=== PATIENT | female | born 1990 | race Two or more races ===

== ENCOUNTER 2018-12-17 17:51 | Emergency (ER) | payer OTHER ==
[~2018-12-17] VITALS: Ht 160 cm; Wt 86.2 kg
[~2018-12-17 17:51] MED LIST: OSEL75CA PO
== END 2018-12-17 22:18 | disposition home or self-care (01) ==
LOC: ER 17:51
DX: N80.9 Endometriosis, unspecified (principal); R10.2 Pelvic and perineal pain

== ENCOUNTER 2019-07-17 08:30 | Day surgery (SDC) | payer OTHER | END 2019-07-17 15:00 | disposition home or self-care (01) | LOC: AMB-ENDOS 08:30 | DX: K52.89 Other specified noninfective gastroenteritis and colitis (principal); K64.1 Second degree hemorrhoids ==

== ENCOUNTER 2019-12-09 05:23 | Day surgery (SDC) | payer OTHER | END 2019-12-09 11:50 | disposition home or self-care (01) | LOC: CIR.AMB 05:23 | DX: N84.0 Polyp of corpus uteri (principal) ==

== ENCOUNTER 2021-06-08 13:09 | Outpatient (CLI) | payer OTHER | END 2021-06-08 13:21 | disposition home or self-care (01) | LOC: SONOGRAMA 13:09 → MAMO-SONO 13:45 | PROVIDERS: ATTEND Obstetrics & Gynecology | DX: N83.291 Other ovarian cyst, right side (principal) ==

== ENCOUNTER 2022-02-27 11:24 | Outpatient (CLI) | payer OTHER | END 2022-02-27 13:15 | disposition home or self-care (01) | LOC: PRENATAL 11:24 | PROVIDERS: ATTEND Obstetrics & Gynecology Maternal & Fetal Medicine | DX: O36.80X0 Pregnancy with inconclusive fetal viability, not applicable or unspecified (principal); Z3A.13 13 weeks gestation of pregnancy ==

== ENCOUNTER 2022-04-20 09:17 | Outpatient (CLI) | payer OTHER | END 2022-04-20 10:39 | disposition home or self-care (01) | LOC: PRENATAL 09:17 | PROVIDERS: ATTEND Obstetrics & Gynecology Maternal & Fetal Medicine | DX: O36.80X0 Pregnancy with inconclusive fetal viability, not applicable or unspecified (principal); Z36.0 Encounter for antenatal screening for chromosomal anomalies; O99.210 Obesity complicating pregnancy, unspecified trimester; O34.40 Maternal care for other abnormalities of cervix, unspecified trimester; Z3A.21 21 weeks gestation of pregnancy ==

== ENCOUNTER 2022-07-17 13:57 | Outpatient (CLI) | payer OTHER ==
[2022-07-17] MEDS ORDERED: PRENATAL TABLE1 EAC4 (14:04)
== END 2022-07-18 13:46 | disposition home or self-care (01) ==
LOC: OBS/DEL 13:57
PROVIDERS: ATTEND Obstetrics & Gynecology
DX: S39.91XA Unspecified injury of abdomen, initial encounter (principal); W19.XXXA Unspecified fall, initial encounter; Y93.9 Activity, unspecified; Y92.9 Unspecified place or not applicable; O26.893 Other specified pregnancy related conditions, third trimester; Z3A.33 33 weeks gestation of pregnancy

== ENCOUNTER 2022-07-25 11:34 | Outpatient (CLI) | payer OTHER ==
[~2022-07-25 11:34] MED LIST changes: +PRENATAL TABLE1 EAC4
== END 2022-07-25 12:45 | disposition home or self-care (01) ==
LOC: PRENATAL 11:34
PROVIDERS: ATTEND Obstetrics & Gynecology Maternal & Fetal Medicine
DX: O26.849 Uterine size-date discrepancy, unspecified trimester (principal); O36.8199 Decreased fetal movements, unspecified trimester, other fetus; Z3A.34 34 weeks gestation of pregnancy

== ENCOUNTER 2022-08-07 10:47 | Inpatient (IN) | payer OTHER ==
[~2022-08-07] VITALS: Ht 160 cm; Wt 111.1 kg
[2022-08-27] MEDS ORDERED: CONCEPT OB CAP1 EACH (11:03)
== END 2022-08-30 17:26 | disposition home or self-care (01) | DRG 807 ==
LOC: OB/GYN 08-27 06:16 → LDR 08-27 06:16 → OB/GYN 08-27 13:55 → LDR 08-30 10:29 → OB/GYN 08-30 17:26
PROVIDERS: ADMIT Obstetrics & Gynecology; ATTEND Obstetrics & Gynecology
PROC: 4A1HXCZ Monitoring of Products of Conception, Cardiac Rate, External Approach (ICD-10-PCS; 2022-08-27)
PROC: 10E0XZZ Delivery of Products of Conception, External Approach (ICD-10-PCS; principal; 2022-08-28)
PROC: 0KQM0ZZ Repair Perineum Muscle, Open Approach (ICD-10-PCS; 2022-08-28)
DX: O70.1 Second degree perineal laceration during delivery (principal); Z37.0 Single live birth; Z3A.39 39 weeks gestation of pregnancy; Z20.822 Contact with and (suspected) exposure to COVID-19

== ENCOUNTER 2023-02-10 07:39 | Emergency (ER) | payer OTHER ==
[~2023-02-10] VITALS: Ht 160 cm; Wt 103.9 kg
[~2023-02-10 07:39] MED LIST changes: +CONCEPT OB CAP1 EACH
== END 2023-02-10 10:54 | disposition home or self-care (01) ==
LOC: ER 07:39
DX: J06.9 Acute upper respiratory infection, unspecified (principal)

== ENCOUNTER 2023-03-21 01:24 | Emergency (ER) | payer OTHER ==
[~2023-03-21] VITALS: Ht 160 cm; Wt 99.8 kg
[2023-03-21] MEDS ORDERED: ZYRTEC10 MG PO (04:13)
[2023-03-21] MEDS ORDERED: PEPCID40 MG PO (04:13)
[2023-03-21] MEDS ORDERED: MEDROL4 MG PO (04:13)
== END 2023-03-21 04:19 ==
LOC: ER 01:24
DX: T78.49XA Other allergy, initial encounter (principal)

== ENCOUNTER 2024-02-17 10:14 | Outpatient (CLI) | payer OTHER ==
[~2024-02-17 10:14] MED LIST changes: +MEDROL4 MG PO; +PEPCID40 MG PO; +ZYRTEC10 MG PO
== END 2024-02-17 10:23 | disposition home or self-care (01) ==
LOC: RAD 10:14
PROVIDERS: ATTEND Internal Medicine
DX: G62.9 Polyneuropathy, unspecified (principal); E66.9 Obesity, unspecified; E78.9 Disorder of lipoprotein metabolism, unspecified; E11.9 Type 2 diabetes mellitus without complications; E11.51 Type 2 diabetes mellitus with diabetic peripheral angiopathy without gangrene; E55.9 Vitamin D deficiency, unspecified; Z12.11 Encounter for screening for malignant neoplasm of colon; Z12.31 Encounter for screening mammogram for malignant neoplasm of breast